=== PATIENT | female | born 1955 | race Native Hawaiian/Other Pacific Islander ===

== ENCOUNTER 2016-10-11 08:14 | Emergency (ER) | payer BC ==
[~2016-10-11] VITALS: Ht 165.1 cm; Wt 115.7 kg
[2016-10-11 08:48] LABS: PLATELET COUNT 380 K/uL (152-353)
[2016-10-11 08:56] LABS: POTASSIUM 4.4 mmol/L (3.6-5.2)
[2016-10-11 10:37] VITALS: BP 203/104; TEMP 97.5
== END 2016-10-11 10:37 | disposition short-term general hospital (02) ==
LOC: ED 08:14
DX: N20.1 Calculus of ureter (principal); R11.2 Nausea with vomiting, unspecified; K76.0 Fatty (change of) liver, not elsewhere classified; K80.80 Other cholelithiasis without obstruction
CPT/HCPCS: 36415; 80053; 81000; 85027; 96374; 96375; 96376; 99283; J1885; J2405; J3490

== ENCOUNTER 2016-10-11 10:39 | Outpatient (CLI) | payer BC | END 2016-10-11 11:22 | disposition short-term general hospital (02) | LOC: AMB 10:39 | DX: N20.1 Calculus of ureter (principal); R11.2 Nausea with vomiting, unspecified; K76.0 Fatty (change of) liver, not elsewhere classified; K80.80 Other cholelithiasis without obstruction | CPT/HCPCS: A0425; A0429 ==

== ENCOUNTER 2018-01-31 09:00 | Outpatient (CLI) | payer BC | END 2018-01-31 19:02 | disposition home or self-care (01) | LOC: MAMMO 09:00 | DX: Z12.31 Encounter for screening mammogram for malignant neoplasm of breast (principal) ==

== ENCOUNTER 2020-06-05 09:30 | Outpatient (CLI) | payer OTHER | END 2020-06-05 20:58 | disposition home or self-care (01) | LOC: MAMMO 09:30 | PROVIDERS: ATTEND Nurse Practitioner | DX: Z12.31 Encounter for screening mammogram for malignant neoplasm of breast (principal) ==

== ENCOUNTER 2020-08-25 07:43 | Outpatient (CLI) | payer OTHER ==
[2020-08-25 08:22] LABS: POTASSIUM 3.7 mmol/L (3.6-5.2)
== END 2020-08-25 19:14 | disposition home or self-care (01) ==
LOC: LABW 07:43
PROVIDERS: ATTEND Nurse Practitioner
DX: E11.65 Type 2 diabetes mellitus with hyperglycemia (principal); E78.1 Pure hyperglyceridemia
CPT/HCPCS: 36415; 80048; 80061; 83036

== ENCOUNTER 2021-01-19 09:04 | Outpatient (CLI) | payer OTHER | END 2021-01-19 23:59 | disposition home or self-care (01) | LOC: RAD 09:04 | PROVIDERS: ATTEND Physician Assistant | DX: R74.8 Abnormal levels of other serum enzymes (principal); Z13.820 Encounter for screening for osteoporosis; N95.8 Other specified menopausal and perimenopausal disorders ==

== ENCOUNTER 2022-03-05 09:54 | Outpatient (CLI) | payer OTHER | END 2022-03-05 18:57 | disposition home or self-care (01) | LOC: MAMMO 09:54 | PROVIDERS: ATTEND Internal Medicine | DX: Z12.31 Encounter for screening mammogram for malignant neoplasm of breast (principal); E55.9 Vitamin D deficiency, unspecified ==

== ENCOUNTER 2022-03-18 08:07 | Outpatient (CLI) | payer OTHER ==
[2022-03-18 08:33] LABS: PLATELET COUNT 317 K/uL (152-353)
[2022-03-18 09:30] LABS: POTASSIUM 3.7 mmol/L (3.6-5.2)
== END 2022-03-18 19:22 | disposition home or self-care (01) ==
LOC: LABW 08:07
PROVIDERS: ATTEND Internal Medicine
DX: E11.9 Type 2 diabetes mellitus without complications (principal); E55.9 Vitamin D deficiency, unspecified
CPT/HCPCS: 36415; 80053; 80061; 81002; 82043; 82306; 83036; 84439; 84443; 85027

== ENCOUNTER 2022-11-19 07:56 | Outpatient (CLI) | payer OTHER ==
[2022-11-19 08:24] LABS: PLATELET COUNT 351 K/uL (152-353)
[2022-11-19 08:57] LABS: POTASSIUM 3.5 mmol/L (3.6-5.2)
== END 2022-11-19 19:10 | disposition home or self-care (01) ==
LOC: LABW 07:56
PROVIDERS: ATTEND Internal Medicine
DX: E11.9 Type 2 diabetes mellitus without complications (principal); E55.9 Vitamin D deficiency, unspecified
CPT/HCPCS: 36415; 80053; 80061; 81002; 82043; 82306; 83036; 84439; 84443; 85027